=== PATIENT | male | born 1970 | race Caucasian/White ===

== ENCOUNTER → 2022-03-15 | Outpatient (CLI) | payer OTHER, SELFPAY ==
[2022-03-15 12:33] LABS: Absolute Lymphocyte Count 1.87 X10^3/uL (0.83-4.51); Absolute Neutrophil Count 3.2 X10^3/uL (2.0-7.7); Basophil# 0.05 X10^3/uL; Basophil% 0.8 % (0-1); Eosinophil# 0.11 X10^3/uL; Eosinophils% 1.8 % (0-5); Hematocrit 43.1 % (40-54); Hemoglobin 14.6 g/dL (13.0-16.5); Lymphocyte # 1.87 X10^3/ul (0.83-4.51); Lymphocyte % 30.2 % (19-41); Mean Corp Hgb Conc 33.9 g/dL (32-36); Mean Corpuscular Hgb 30.9 pg (27.0-32.0); Mean Corpuscular Volume 91.1 fL (80-94); Mean Platelet Vol. 10.9 fl (6.2-12.0); Monocyte# 0.93 X10^3/uL; NRBC Flagged by Analyzer 0 % (0-5); Neutrophil % 51.7 % (47-70); Platelet Count 313 K/mm3 (150-450); RBC Distribution Width CV 11.8 % (11.6-14.6); RBC Distribution Width SD 39.6 fl (35.1-43.9); Red Blood Count 4.73 M/mm3 (4.6-6.2); White Blood Count 6.2 K/mm3 (4.4-11.0)
[2022-03-15 13:13] LABS: ALB/GLOB Ratio 1.1 RATIO (0.9-2.4); AST(SGOT) 22 U/L (15-37); Alanine Aminotransfer ALT/SGPT 47 U/L (16-61); Alkaline Phosphatase 61 U/L (45-117); Anion Gap 5 (5-15); BUN 13 mg/dL (7-18); BUN/Creat Ratio 13.6 RATIO (10-20); Calcium,Total 9.1 mg/dL (8.5-10.1); Chloride 99 mmol/L (98-107); Cholesterol 216 mg/dL (200); Creatinine, Serum 0.96 mg/dL (0.70-1.30); EST Glomerular Filtration Rate 87 mL/min (>60); Est Glom Filt Rate - Afr Amer 106 mL/min (>60); Globulin 3.6 g/dL (2.2-4.2); Glucose 105 mg/dL (74-106); High Density Lipoprotein 46 mg/dL; Potassium 3.8 mmol/L (3.5-5.1); Protein, Total 7.6 g/dL (6.4-8.2); Sodium Level 137 mmol/L (136-145); Triglycerides 138 mg/dL; Very Low Density Lipoprotein 28 mg/dL (5-40)
[2022-03-15 13:54] LABS: Hepatitis C Antibody Non-Reactive (Nonreactive)
== END | disposition home or self-care (01) ==
LOC: BIMLAB 08:39
PROVIDERS: PCP Internal Medicine; Referring Provider Internal Medicine; Visit Provider Internal Medicine
DX: I10 Essential (primary) hypertension (principal); R07.9 Chest pain, unspecified; Z11.59 Encounter for screening for other viral diseases; Z13.6 Encounter for screening for cardiovascular disorders
CPT/HCPCS: 36415; 80053; 80061; 85025; 86803

== ENCOUNTER → 2022-10-18 | Outpatient (CLI) | payer OTHER, SELFPAY ==
[2022-10-18 12:47] LABS: AST(SGOT) 29 U/L (15-37); Alanine Aminotransfer ALT/SGPT 54 U/L (16-61); Albumin, Serum 3.7 g/dL (3.2-5.0); Alkaline Phosphatase 73 U/L (45-117); Anion Gap 7 (5-15); BUN 10 mg/dL (7-18); BUN/Creat Ratio 11.6 RATIO (10-20); Calcium,Total 8.7 mg/dL (8.5-10.1); Chloride 101 mmol/L (98-107); Cholesterol 161 mg/dL (200); Creatinine, Serum 0.86 mg/dL (0.70-1.30); EST Glomerular Filtration Rate 99 mL/min (>60); Est Glom Filt Rate - Afr Amer 120 mL/min (>60); Globulin 3.6 g/dL (2.2-4.2); Glucose 100 mg/dL (74-106); High Density Lipoprotein 48 mg/dL; Potassium 3.7 mmol/L (3.5-5.1); Protein, Total 7.3 g/dL (6.4-8.2); Sodium Level 138 mmol/L (136-145); Triglycerides 142 mg/dL; Very Low Density Lipoprotein 28 mg/dL (5-40)
== END | disposition home or self-care (01) ==
LOC: BIMLAB 08:37
PROVIDERS: PCP Internal Medicine; Referring Provider Internal Medicine; Visit Provider Internal Medicine
DX: I10 Essential (primary) hypertension (principal); E78.2 Mixed hyperlipidemia
CPT/HCPCS: 36415; 80053; 80061

== ENCOUNTER → 2023-10-16 | Outpatient (CLI) | payer OTHER, SELFPAY ==
[2023-10-16 12:41] LABS: Absolute Lymphocyte Count 1.77 X10^3/uL (0.83-4.51); Absolute Neutrophil Count 3.6 X10^3/uL (2.0-7.7); Basophil# 0.05 X10^3/uL; Basophil% 0.8 % (0-1); Eosinophil# 0.21 X10^3/uL; Eosinophils% 3.3 % (0-5); Hematocrit 44.3 % (40-54); Hemoglobin 14.6 g/dL (13.0-16.5); Lymphocyte # 1.77 X10^3/ul (0.83-4.51); Lymphocyte % 27.6 % (19-41); Mean Corpuscular Hgb 30.7 pg (27.0-32.0); Mean Corpuscular Volume 93.1 fL (80-94); Mean Platelet Vol. 10.8 fl (6.2-12.0); Monocyte# 0.74 X10^3/uL; Monocyte% 11.5 % (0-10); NRBC Flagged by Analyzer 0 % (0-5); Platelet Count 310 K/mm3 (150-450); RBC Distribution Width CV 11.9 % (11.6-14.6); RBC Distribution Width SD 41.1 fl (35.1-43.9); Red Blood Count 4.76 M/mm3 (4.6-6.2); White Blood Count 6.4 K/mm3 (4.4-11.0)
[2023-10-16 13:48] LABS: AST(SGOT) 29 U/L (15-37); Alanine Aminotransfer ALT/SGPT 53 U/L (16-61); Albumin, Serum 3.8 g/dL (3.2-5.0); Alkaline Phosphatase 74 U/L (45-117); Anion Gap 7 (5-15); BUN 11 mg/dL (7-18); BUN/Creat Ratio 12.3 RATIO (10-20); Calcium,Total 8.7 mg/dL (8.5-10.1); Chloride 104 mmol/L (98-107); Cholesterol 152 mg/dL (200); EST Glomerular Filtration Rate 94 mL/min (>60); Est Glom Filt Rate - Afr Amer 113 mL/min (>60); Globulin 3.8 g/dL (2.2-4.2); Glucose 104 mg/dL (74-106); High Density Lipoprotein 55 mg/dL; Protein, Total 7.6 g/dL (6.4-8.2); Sodium Level 140 mmol/L (136-145); Triglycerides 115 mg/dL; Very Low Density Lipoprotein 23 mg/dL (5-40)
== END | disposition home or self-care (01) ==
LOC: BIMLAB 08:46
PROVIDERS: PCP Internal Medicine; Referring Provider Internal Medicine; Visit Provider Internal Medicine
DX: I10 Essential (primary) hypertension (principal); E78.2 Mixed hyperlipidemia
CPT/HCPCS: 36415; 80053; 80061; 85025

== ENCOUNTER → 2025-04-21 | Outpatient (CLI) | payer OTHER, SELFPAY ==
[2025-04-21 12:44] LABS: Hematocrit 41.8 % (40-54); Hemoglobin 14.4 g/dL (13.0-16.5); Immature Granulocytes Count 0.040 X10^3/uL (0.0-0.0); Mean Corp Hgb Conc 34.4 g/dL (32-36); Mean Corpuscular Volume 91.3 fL (80-94); Mean Platelet Vol. 11.3 fl (6.2-12.0); NRBC Flagged by Analyzer 0 % (0-5); Platelet Count 293 K/mm3 (150-450); RBC Distribution Width CV 12.1 % (11.6-14.6); RBC Distribution Width SD 40.2 fl (35.1-43.9); Red Blood Count 4.58 M/mm3 (4.6-6.2); White Blood Count 5.5 K/mm3 (4.4-11.0)
[2025-04-21 13:19] LABS: AST(SGOT) 25 U/L (<=37); Alanine Aminotransfer ALT/SGPT 31 U/L (<=46); Albumin, Serum 4.5 g/dL (3.5-5.0); Alkaline Phosphatase 56 U/L (40-129); Anion Gap 12 (5-15); BUN 14 mg/dL (4-19); BUN/Creat Ratio 16.2 RATIO (10-20); Calcium,Total 9.5 mg/dL (7.6-11.0); Carbon Dioxide 26.3 mmol/L (21.0-32.0); Chloride 101 mmol/L (98-108); Cholesterol 178 mg/dL (<=200); Globulin 2.9 g/dL (2.2-4.2); Glucose 117 mg/dL (70-99); Low Density Lipoprotein Calc. 96 mg/dL; Potassium 4.4 mmol/L (3.3-5.1); Triglycerides 164 mg/dL; Very Low Density Lipoprotein 33 mg/dL (5-40); cholesterol:hdl ratio screen 3.60
== END | disposition home or self-care (01) ==
LOC: BIMLAB 09:11
PROVIDERS: PCP Internal Medicine; Referring Provider Internal Medicine; Visit Provider Internal Medicine
DX: I10 Essential (primary) hypertension (principal); E78.2 Mixed hyperlipidemia; R73.09 Other abnormal glucose
CPT/HCPCS: 36415; 80053; 80061; 83036; 85025